=== PATIENT | male | born 1980 | race Two or more races ===

== ENCOUNTER 2023-04-28 15:29 | Emergency (ER) | payer SELFPAY ==
[~2023-04-28] VITALS: Ht 170.2 cm; Wt 68.0 kg
--- NOTE | 2023-04-28 15:39 | NUR ---
Pt seen by for bedside eval. Seizure safety precautions in place. General safety measures in place. Will continue to monitor.
[2023-04-28] MEDS ORDERED: IV NORMAL SALINE 1000 ML BAG IV ONE (15:45)
[2023-04-28 15:59] LABS: HEMATOCRIT 44.3 % (36.7-47.1); MEAN CORPUSCULAR HEMOGLOBIN 30.8 uug (23.8-33.4); MEAN CORPUSCULAR VOLUME 92.9 fL (73.0-96.2); PLATELET COUNT (AUTO) 300 K/uL (152-348)
[2023-04-28 16:26] LABS: ALANINE AMINOTRANSFERASE 41 U/L (16-63); ALKALINE PHOSPHATASE 238 U/L (50-136); ASPARTATE AMINOTRANSFERASE 45 U/L (15-37); BILIRUBIN,DIRECT 0.3 mg/dL (0.0-0.2); BILIRUBIN,TOTAL 1.2 mg/dL (0.2-1.0); CARBON DIOXIDE 22 mmol/L (21-32); CHLORIDE 99 mmol/L (98-107); POTASSIUM 3.8 mmol/L (3.5-5.1); TOTAL PROTEIN, SERUM 8.1 g/dL (6.4-8.2); UREA NITROGEN, BLOOD 24 mg/dL (7-18)
[2023-04-28 16:38] LABS: ACETAMINOPHEN < 2.0 ug/mL (10-30)
[2023-04-28 18:37] VITALS: BP 146/78; TEMP 98.5; O2SAT 100
--- NOTE | 2023-04-28 18:37 | NUR ---
Patient discharged to home in stable condition. Written and verbal after care instructions given. Patient verbalizes understanding of instructions. Stressed follow up or return to ER for worsening s/s.
[2023-04-29] MEDS ORDERED: LEVE500T9 PO (16:02)
== END 2023-04-28 18:38 | disposition home or self-care (01) ==
LOC: ER 15:29
DX: R56.9 Unspecified convulsions (principal)
CPT/HCPCS: 80076; 80048; 82140; 82550; 84443; 85025; 85730; 84484; 93005; 70450; 99284; 96360; 96361; 80299; 80320; 80307; J7040; A4663; G0480

== ENCOUNTER 2023-04-28 18:44 | Inpatient (IN) | payer SELFPAY ==
[~2023-04-28] VITALS: Ht 170.2 cm; Wt 68.0 kg
[2023-04-28] MEDS ORDERED: levETIRAcetam IV 1,000 MG in IV DEXTROSE 5% 100 ML IV ONE (19:00)
--- NOTE | 2023-04-28 19:09 | NUR ---
Upon leaving ER, pt had a witnessed seizure and fell to ground in front of hospital. Multiple workers from [facility] and pedestrians helped pt right away. Pt carried to to Rm 3 and seen by doctor. Implemented seizure safety precautions. Will continue to monitor.
--- NOTE | 2023-04-28 19:37 | NUR ---
Gave report to Deng (RN).
[2023-04-28] MEDS ORDERED: levETIRAcetam 500 MG/5 ML VIAL IV ONE (19:53)
[2023-04-28 20:52] LABS: HEMATOCRIT 41.7 % (36.7-47.1); MEAN CORPUSCULAR HEMOGLOBIN 31.3 uug (23.8-33.4); PLATELET COUNT (AUTO) 255 K/uL (152-348)
[2023-04-28 21:07] LABS: CARBON DIOXIDE 23 mmol/L (21-32); CHLORIDE 103 mmol/L (98-107); CREATININE 0.8 mg/dL (0.6-1.3); POTASSIUM 3.7 mmol/L (3.5-5.1); UREA NITROGEN, BLOOD 17 mg/dL (7-18)
[2023-04-28 21:12] LABS: ALANINE AMINOTRANSFERASE 35 U/L (16-63); ALKALINE PHOSPHATASE 215 U/L (50-136); ASPARTATE AMINOTRANSFERASE 35 U/L (15-37); BILIRUBIN,DIRECT 0.3 mg/dL (0.0-0.2); BILIRUBIN,TOTAL 1.1 mg/dL (0.2-1.0); TOTAL PROTEIN, SERUM 7.4 g/dL (6.4-8.2)
[2023-04-28 22:40] LABS: *AMPHETAMINE, URINE NEGATIVE (NEGATIVE); *CANNABINOID, URINE NEGATIVE (NEGATIVE); *COCCAINE, URINE NEGATIVE (NEGATIVE); *PHENCYCLIDINE SCREEN,URINE NEGATIVE (NEGATIVE)
--- NOTE | 2023-04-28 23:00 | NUR ---
Patient sleeping on gurny, easily arousable A/Ox3 with no distress noted.
--- NOTE | 2023-04-29 00:07 | NUR ---
Paged Epic panel validation analyst, waiting for Lina Mancilla DNP to call back.
--- NOTE | 2023-04-29 00:20 | NUR ---
Dr Montanez spoke with Lina Mancilla DNP personnel recruiter for [facility] who accepts patient to Tele floor.
[2023-04-29] MEDS ORDERED: ONDANSETRON 4 MG/2 ML VIAL IV PRN (00:30)
[2023-04-29] MEDS ORDERED: HYDROCODONE/APAP 5-325MG TABLET PO PRN (00:30)
[2023-04-29] MEDS ORDERED: ACETAMINOPHEN 325 MG TABLET PO PRN (00:30)
[2023-04-29] MEDS ORDERED: TEMAZEPAM 15 MG CAPSULE PO PRN (00:30)
[2023-04-29] MEDS ORDERED: REMEDY ESSENTIAL ZINC PASTE 113 GM TP PRN (00:30)
[2023-04-29] MEDS ORDERED: MAGNESIUM HYDROXIDE 30 ML LIQUID UDC PO PRN (00:30)
[2023-04-29 02:25] VITALS: BP 149/90; TEMP 98.6; O2SAT 100
--- NOTE | 2023-04-29 02:30 | NUR ---
Transfered patient to 3rd floor via gurny with no distress noted.
--- NOTE | 2023-04-29 02:35 | NUR ---
PATIENT ADMITTED TO FLOOR VIA GURNEY. A/O X4. DENIES ANY PAIN OR DISCOMFORT. NO RESP. DISTRESS NOTED. VSS. PLACED ON TELE ORDERED, SR/ST. ON SEIZURES PRECAUTIONS. ORIENTED PATIENT TO ROOM AND CALL LIGHT. CALL LIGHT IN REACH. ALL NEEDS ATTENDED. WILL CONTINUE TO MONITOR AND ASSESS.
[2023-04-29] MEDS: IV NS 1000 ML 1,000 ML IV PRN ×2 (04:00→12:14)
[2023-04-29 05:55] VITALS: BP 137/74; TEMP 98.1; O2SAT 99
--- NOTE | 2023-04-29 06:20 | NUR ---
PATIENT ASLEEP IN BED. VS WNL. ON TELE SR. IVF INFUSING WELL. CALL LIGHT IN REACH. ALL NEEDS ATTENDED. WILL CONTINUE TO MONITOR AND ASSESS.
[2023-04-29] MEDS ORDERED: PANTOPRAZOLE SODIUM 40 MG TABLET.DR PO SCH (07:00)
--- NOTE | 2023-04-29 08:00 | NUR ---
AWAKE ALERT AND ORIENTED X3 TURKISH SPEAKING WITH CONTINUOUS NS AT 125 MLS/HR. SR ON MONITOR
[2023-04-29] MEDS ORDERED: levETIRAcetam IV 1,000 MG in IV DEXTROSE 5% 100 ML IV SCH (09:00)
[2023-04-29 11:35] VITALS: BP 147/84; TEMP 98.5; O2SAT 99
--- NOTE | 2023-04-29 12:00 | NUR ---
NO ACUTE CHANGE FROM MORNING ASSESSMENT, CONTINUE WITH IVF TILL FURTHER ORDERS, CLOSE MONITORING FOR SEIZURE
--- NOTE | 2023-04-29 15:29 | NUR ---
SEEN BY DR COOPER FOR FOLLOW-UP, NO FURTHER SS OF SEIZURE
[2023-04-29 16:00] VITALS: BP 158/85; TEMP 97.9; O2SAT 100
[2023-04-29] MEDS ORDERED: LEVE500T9 PO (16:02)
--- NOTE | 2023-04-29 17:26 | NUR ---
EEG DONE AT BEDSIDE
--- NOTE | 2023-04-29 17:46 | NUR ---
DISCHARGE HOME STABLE ACCOMPANIED BY WITH RX AND F/U INSTRUCTION GIVEN
== END 2023-04-29 17:45 | disposition home or self-care (01) | DRG 101 ==
LOC: ER 18:46 → TELE3 04-29 00:20
PROVIDERS: ADMIT Nurse Practitioner Acute Care; ATTEND Internal Medicine
DX: G40.909 Epilepsy, unspecified, not intractable, without status epilepticus (principal); M62.82 Rhabdomyolysis; R17 Unspecified jaundice; S00.03XA Contusion of scalp, initial encounter; W19.XXXA Unspecified fall, initial encounter; Y93.89 Activity, other specified; Y92.89 Other specified places as the place of occurrence of the external cause; I10 Essential (primary) hypertension; Z82.49 Family history of ischemic heart disease and other diseases of the circulatory system
CPT/HCPCS: 36415; 70450; 72125; 85025; 93005; G0378; G0480; J1953; J7040